=== PATIENT | female | born 1960 | race Caucasian/White ===

== ENCOUNTER 2022-03-14 11:30 | Outpatient (CLI) | payer OTHER, SELFPAY ==
[2022-03-14 21:48] LABS: Cholesterol* 166 mg/dL (90-199)
[2022-03-14 21:49] LABS: HDL Cholesterol* 54 mg/dL (>=50); LDL Cholesterol Calculated 88 mg/dL (<100); Triglycerides* 119 mg/dL (40-149)
== END 2022-03-14 11:31 | disposition home or self-care (01) ==
LOC: LKVREF 11:31
PROVIDERS: Visit Provider Emergency Medicine
DX: E78.5 Hyperlipidemia, unspecified (principal)
CPT/HCPCS: 80061

== ENCOUNTER 2023-04-28 17:03 | Outpatient (CLI) | payer OTHER, SELFPAY | END 2023-04-28 17:04 | disposition home or self-care (01) | LOC: NFLDREF 05-03 13:36 | PROVIDERS: PCP Emergency Medicine; Visit Provider Nurse Practitioner Family | DX: R30.0 Dysuria (principal); N39.0 Urinary tract infection, site not specified; N30.01 Acute cystitis with hematuria | CPT/HCPCS: 87086; 87186 ==

== ENCOUNTER 2023-08-17 13:33 | Outpatient (CLI) | payer OTHER, SELFPAY | END 2023-08-17 13:34 | disposition home or self-care (01) | LOC: LKVREF 13:37 | PROVIDERS: PCP Emergency Medicine; Visit Provider Nurse Practitioner Family | DX: Z00.00 Encounter for general adult medical examination without abnormal findings (principal); E78.5 Hyperlipidemia, unspecified | CPT/HCPCS: 80061 ==

== ENCOUNTER 2024-09-05 10:32 | Outpatient (CLI) | payer OTHER, SELFPAY | END 2024-09-05 10:33 | disposition home or self-care (01) | LOC: LKVREF 10:35 | PROVIDERS: PCP Emergency Medicine; Visit Provider Nurse Practitioner Family | DX: R03.0 Elevated blood-pressure reading, without diagnosis of hypertension (principal); E78.2 Mixed hyperlipidemia | CPT/HCPCS: 80053; 80061 ==

== ENCOUNTER 2025-02-11 13:45 | Outpatient (RCR) | payer OTHER, SELFPAY | END 2025-06-11 23:59 | disposition home or self-care (01) | PROVIDERS: PCP Nurse Practitioner Family; Visit Provider Physician Assistant Medical | DX: M54.50 Low back pain, unspecified (principal); M25.551 Pain in right hip; M79.604 Pain in right leg; Z51.89 Encounter for other specified aftercare | CPT/HCPCS: 97032; 97110; 97140; 97161; 97530 ==

== ENCOUNTER 2025-05-06 08:57 | Outpatient (CLI) | payer OTHER, SELFPAY | END 2025-05-06 08:58 | disposition home or self-care (01) | LOC: INJ CL 08:58 | PROVIDERS: PCP Nurse Practitioner Family; Visit Provider Family Medicine | DX: M54.16 Radiculopathy, lumbar region (principal); M51.369 Other intervertebral disc degeneration, lumbar region without mention of lumbar back pain or lower extremity pain | CPT/HCPCS: 64483; J1100; Q9966 ==